=== PATIENT | female | born 1970 | race Hispanic/Latino ===

== ENCOUNTER 2023-04-02 19:40 | Emergency (ER) | payer MEDICAID ==
[2023-04-02] MEDS ORDERED: TOBROO OP (23:36)
== END 2023-04-02 20:55 | disposition left against medical advice (07) ==
LOC: EDH 19:40
DX: H57.12 Ocular pain, left eye (principal); Z53.21 Procedure and treatment not carried out due to patient leaving prior to being seen by health care provider

== ENCOUNTER 2023-04-02 23:14 | Emergency (ER) | payer MEDICAID ==
[~2023-04-02] VITALS: Ht 152.4 cm; Wt 94.3 kg
[2023-04-02 23:18] VITALS: BP 111/70; PULSE 66; RESP 18
[2023-04-02] MEDS ORDERED: TOBROO OP (23:36)
== END 2023-04-03 00:31 | disposition home or self-care (01) ==
LOC: EDH 23:14
DX: H00.022 Hordeolum internum right lower eyelid (principal)